=== PATIENT | female | born 1990 | race Caucasian/White ===

== ENCOUNTER 2019-04-05 14:59 | Emergency (ER) | payer OTHER ==
[~2019-04-05] VITALS: Ht 154.9 cm; Wt 66.7 kg
[2019-04-05 15:02] VITALS: BP 121/75; Ht 154.9 cm; Wt 66.7 kg
== END 2019-04-05 17:45 | disposition home or self-care (01) ==
LOC: ED 14:59
DX: R20.2 Paresthesia of skin (principal)